=== PATIENT | male | born 1975 | race Caucasian/White ===

== ENCOUNTER 2021-06-03 14:44 | Outpatient (CLI) | payer BC, SELFPAY ==
[2021-06-03 15:24] LABS: Basophils Absolute Auto 0.1 K/mm3 (0.0-0.1); Basophils Percent Auto 0.9 % (0.2-1.2); Eosinophils Absolute Auto 0.6 K/mm3 (0-0.3); Eosinophils Percent Auto 5.4 % (0-4.4); Hematocrit 45.1 % (42.0-52.0); Hemoglobin 15.2 g/dL (14.0-18.0); Immature Granulocyte Absolute 0.09 K/mm3 (0.00-0.031); Immature Granulocyte Percent A 0.9 % (0-0.5); Lymphocytes Absolute Auto 2.82 K/mm3 (0.9-3.2); Lymphocytes Percent Auto 27.7 % (18.3-44.2); Mean Corpuscular HGB Conc 33.7 g/dl (32-36); Mean Corpuscular Hemoglobin 30.5 pg (26-34); Mean Corpuscular Volume 90.6 fl (80-100); Mean Platelet Volume 10.9 fl (7.4-10.4); Monocytes Absolute Auto 0.6 K/mm3 (0.1-0.6); Monocytes Percent Auto 6.2 % (2.6-8.5); Neutrophils Percent Auto 58.9 % (45.5-73.1); Platelet Count Result 259 k/mm3 (150-375); Red Blood Count 4.98 M/mm3 (4.6-6.20); Red Cell Distribution Width 13.1 % (11.5-14.5); White Blood Count 10.2 K/mm3 (4.5-10.0)
[2021-06-03 15:32] LABS: Add Urine Microscopic? YES; Appearance Urine Cloudy (Clear); Bilirubin Urine Negative (Negative); Blood Urine 1+ (Negative); Color Urine Yellow (Yellow); Glucose Urine UA 3+ mg/dL (Negative); Ketones Urine Negative (Negative); Leukocyte Esterase Ur Negative LEU/UL (NEGATIVE); Mucus Urine Rare /lpf; Nitrate Urine Negative (Negative); Protein Urine 2+ mg/dL (Negative); Specific Grav Ur 1.024 (1.001-1.035); Squamous Epithelial Cell Urine Rare /hpf (Few); WBC Urine 0-3 /hpf (0-3)
[2021-06-03 15:36] LABS: Alanine Aminotransferase 19 U/L (4-50); Albumin Level 4.2 g/dL (3.5-5.1); Alkaline Phosphatase 68 U/L (38-126); Anion Gap 6 mmol/L (8-16); Aspartate Amino Transferase 18 U/L (17-59); Bilirubin,Total 0.7 mg/dL (0.2-1.3); Blood Urea Nitrogen 15 mg/dL (9-20); Carbon Dioxide 26 mmol/L (22-30); Chloride 102 mmol/L (98-107); Cholesterol 193 mg/dL (0-200); Estimated Glomerular Filt Rate > 60; Glucose 210 mg/dL (65-110); HDL Direct 44 mg/dL; Potassium 4.3 mmol/L (3.4-5.0); Sodium 134 mmol/L (137-145); Triglycerides 100 mg/dL (<150)
[2021-06-03 15:39] LABS: Iron 90 ug/dL (49-181)
[2021-06-03 15:39] LABS: Hemoglobin A1C 8.9 % (<5.7)
[2021-06-03 15:51] LABS: Creatinine Urine 200.4 mg/dL
[2021-06-03 15:51] LABS: LDL Cholesterol Direct 117 mg/dL
[2021-06-03 16:30] LABS: MALB Creatinine Ratio 194.5 mg/g (0-30); Microalbumin Urine Random 389.7 mg/L (0-16.7)
[2021-06-03 16:41] LABS: Folic Acid 4.1 ng/mL (2.76->20)
[2021-06-08 15:15] LABS: Testosterone Free 69.6 pg/mL (35.0-155.0); Testosterone Total 461 ng/dL (250-1100)
== END 2021-06-03 14:45 | disposition home or self-care (01) ==
PROVIDERS: PCP Family Medicine; Visit Provider Family Medicine
DX: E11.65 Type 2 diabetes mellitus with hyperglycemia (principal); E78.2 Mixed hyperlipidemia; F32.A Depression, unspecified; E11.42 Type 2 diabetes mellitus with diabetic polyneuropathy; N52.9 Male erectile dysfunction, unspecified; Z12.5 Encounter for screening for malignant neoplasm of prostate
CPT/HCPCS: 36415; 80053; 80061; 81001; 82043; 82607; 82746; 83036; 83540; 84153; 84402; 84403; 84443; 85025; G0103

== ENCOUNTER 2021-07-09 07:58 | Outpatient (CLI) | payer BC, SELFPAY ==
[2021-07-09 08:30] LABS: Add Urine Microscopic? YES; Appearance Urine Clear (Clear); Bilirubin Urine Negative (Negative); Blood Urine 1+ (Negative); Color Urine Yellow (Yellow); Glucose Urine UA 3+ mg/dL (Negative); Ketones Urine Negative (Negative); Leukocyte Esterase Ur Negative LEU/UL (NEGATIVE); Mucus Urine Rare /lpf; Nitrate Urine Negative (Negative); Protein Urine Negative (Negative); Specific Grav Ur 1.027 (1.001-1.035); Urobilinogen Urine Negative mg/dL (<2.0); WBC Urine 0-3 /hpf (0-3)
== END 2021-07-09 07:59 | disposition home or self-care (01) ==
LOC: ANHLAB 08:00
PROVIDERS: PCP Family Medicine; Visit Provider Family Medicine
DX: R31.29 Other microscopic hematuria (principal)
CPT/HCPCS: 81001

== ENCOUNTER 2021-07-22 01:56 | Day surgery (SDC) | payer BC, SELFPAY ==
[2021-07-11 13:39] VITALS: BMI 33.3
[2021-07-22 10:10] VITALS: BP 145/76; PULSE 70; RESP 18; TEMP 36.7; O2SAT 96
--- NOTE | 2021-07-22 10:20 | WPDANESEPPF ---
Anes - Initial Pre Proc Eval Procedure: Operation Date: 07/22/21 11:00 Proposed Procedures p Esophagogastroduodenoscopy - Ravi Pierre MD Date/Time: 07/22/21 10:20 Surgeon: Ravi Pierre MD Pre Op Diagnosis: GERD Patient Data Age: 45 Gender: M Height: 1.91 m Weight: 120.7 kg Last Vital Signs Temp 36.7 C 07/22/21 10:10 Pulse 70 07/22/21 10:10 Resp 18 07/22/21 10:10 BP 145/76 H 07/22/21 10:10 Pulse Ox 96 07/22/21 10:10 Allergies Allergy/AdvReac Type Severity Reaction Status Date / Time monosodium glutamate Allergy Severe Swelling Verified 07/22/21 10:09 of Lip/Tongue/Throat aspirin Allergy Unknown Unknown Verified 07/22/21 10:09 ciprofloxacin AdvReac Mild Dizziness Verified 07/22/21 10:09 Home Medications Medication Instructions Recorded Confirmed Type escitalopram oxalate 10 mg tablet 10 mg PO DAILY #30 tablet 06/03/21 07/15/21 Rx omeprazole 40 mg capsule,delayed 40 mg PO DAILY #30 cap 06/03/21 07/15/21 Rx release lisinopril 20 mg tablet 20 mg PO DAILY #30 tablet 06/11/21 07/15/21 Rx diphenhydramine HCl [Benadryl 50 mg PO HS 07/11/21 07/15/21 History Allergy] metformin 500 mg PO BID 07/11/21 07/15/21 History FinestrellaTouch Ultra2 Meter #1 ea NS 07/15/21 07/15/21 Rx sildenafil (pulm.hypertension) 20 20 mg PO DAILY PRN #90 tablet 07/15/21 07/15/21 Rx mg tablet Patient hx anesthesia problems: none Family hx anesthesia problems: none Results Review: All pre-operative results and documents have been reviewed as part of the pre-operative evaluation. [facility] Past Medical History Medical History Asthma BMI 33.0-33.9,adult BPH without obstruction/lower urinary tract symptoms Chronic depression Confusion Diabetes Diabetic peripheral neuropathy associated with type 2 diabetes mellitus vitamin B12 956 with folic acid 4.1 on 06/03/2021 Elevated WBC count Encounter for prostate cancer screening PSA normal at 1.0 on 06/03/2021 Encounter for wellness examination in adult Essential hypertension GERD (gastroesophageal reflux disease) Hypersomnia Male erectile dysfunction, unspecified normal testosterone of 461 with free testosterone 69.6 on 06/03/2021 Microscopic hematuria (06/03/21) 1+ blood and 11-20 RBCs on 06/03/2021 Myalgia Pre-ulcerative calluses (~06/03/21) great toe bilaterally Proteinuria due to type 2 diabetes mellitus (06/03/21) 2+ protein and microalbumin ratio of 194.5 on 06/03/2021 Seasonal allergic rhinitis Tobacco use disorder, continuous 1 pack of cigarettes per week Tonsillar hypertrophy Type 2 diabetes mellitus with hyperglycemia glucose 210 with hemoglobin A1c 8.9 on 06/03/2021 Varicose veins of both legs with edema Family History Family History Other Family history of Alzheimer's disease Family history of malignant neoplasm of breast Family history of mental disorder Family history of multiple sclerosis Social History Social History Smoking packs per day: 0.5 Smoking cigarettes per day: 10.0 Years smoked: 15 Smoking pack-years: 7.50 Tobacco type: cigarettes Additional smoking assessment comments: CURRENTLY ONLY SMOKES WHEN HE HAS A BEER Alcohol intake: current Alcohol use details: rarely Substance use: current Substance use type: marijuana Other substance usage details: DAILY Living arrangements: with family Spiritual care concerns: No Anes - Eval Final PreProcedure Day of Procedure 07/22/21 10:20 Patient weight: obese Heart: regular rate and rhythm Lungs: clear to auscultation Airway: Mallampati scale class II Neurological: alert and oriented Last oral intake: >/= 8 hours ASA classification: III Emergent: no Anesthetic plan: proceed Anesthesia type and monitoring: general GIVS and standard monitoring Result
[2021-07-22] MEDS: LACTATED RINGERS 1,000 ML 150 ML IV CONT (10:24)
[2021-07-22 10:25] LABS: Glucose Point of Care 186 mg/dl (65-105)
--- NOTE | 2021-07-22 10:52 | PM.HPGS ---
History of Present Illness History of Present Illness Consent: Risks, benefits, and alternatives have been discussed and questions answered. Patient agrees to proceed with procedure. Chief complaint: GERD Narrative: Kang Altman is a 45 year old male here with n/v after waking up most of days for last 3-4 months, omeprazole helping some. Never had EGD, he also smokes marijuana. Review of Systems Constitutional: Constitutional: Denies headache(s) and Denies weakness Eyes: Eyes: Denies blurry vision ENT: Reports Normal hearing present, Denies headache(s) and Denies neck pain Cardiovascular: Cardiovascular: Denies chest pain and Denies dyspnea Respiratory: Respiratory: Denies dyspnea Gastrointestinal: Gastrointestinal: Reports no additional gastrointestinal complaints Genitourinary: Genitourinary: Denies dysuria Musculoskeletal: Musculoskeletal: Denies neck pain Integumentary/Breasts: Skin/Breast: Denies dry skin Neurologic: Reports Normal hearing present, Denies headache(s) and Denies weakness Psychiatric: Psychiatric: Denies anxiety Endocrine: Endocrine: Denies change in body appearance Hematologic/Lymphatic: Hematologic/Lymphatic: Denies easy bleeding Allergic/Immunologic: Allergic/Immunologic: Denies urticaria [facility] Past Medical History Medical History (Updated 07/22/21 @ 10:53 by Ravi Pierre MD) Asthma BMI 33.0-33.9,adult BPH without obstruction/lower urinary tract symptoms Chronic depression Confusion Diabetes Diabetic peripheral neuropathy associated with type 2 diabetes mellitus vitamin B12 956 with folic acid 4.1 on 06/03/2021 Elevated WBC count Encounter for prostate cancer screening PSA normal at 1.0 on 06/03/2021 Encounter for wellness examination in adult Essential hypertension GERD (gastroesophageal reflux disease) Hypersomnia Male erectile dysfunction, unspecified normal testosterone of 461 with free testosterone 69.6 on 06/03/2021 Marijuana smoker Microscopic hematuria (06/03/21) 1+ blood and 11-20 RBCs on 06/03/2021 Myalgia Nausea & vomiting Pre-ulcerative calluses (~06/03/21) great toe bilaterally Proteinuria due to type 2 diabetes mellitus (06/03/21) 2+ protein and microalbumin ratio of 194.5 on 06/03/2021 Seasonal allergic rhinitis Tobacco use disorder, continuous 1 pack of cigarettes per week Tonsillar hypertrophy Type 2 diabetes mellitus with hyperglycemia glucose 210 with hemoglobin A1c 8.9 on 06/03/2021 Varicose veins of both legs with edema Family History Family History Other Family history of Alzheimer's disease Family history of malignant neoplasm of breast Family history of mental disorder Family history of multiple sclerosis Social History Social History Smoking packs per day: 0.5 Smoking cigarettes per day: 10.0 Years smoked: 15 Smoking pack-years: 7.50 Tobacco type: cigarettes Additional smoking assessment comments: CURRENTLY ONLY SMOKES WHEN HE HAS A BEER Alcohol intake: current Alcohol use details: rarely Substance use: current Substance use type: marijuana Other substance usage details: DAILY Living arrangements: with family Spiritual care concerns: No Meds Home Medications and Allergies Home Medications Medication Instructions Recorded Confirmed Type escitalopram oxalate 10 mg tablet 10 mg PO DAILY #30 tablet 06/03/21 07/15/21 Rx omeprazole 40 mg capsule,delayed 40 mg PO DAILY #30 cap 06/03/21 07/15/21 Rx release lisinopril 20 mg tablet 20 mg PO DAILY #30 tablet 06/11/21 07/15/21 Rx diphenhydramine HCl [Benadryl 50 mg PO HS 07/11/21 07/15/21 History Allergy] metformin 500 mg PO BID 07/11/21 07/15/21 History Shotlst Ultra2 Meter #1 ea NS 07/15/21 07/15/21 Rx sildenafil (pulm.hypertension) 20 20 mg PO DAILY PRN #90 tablet 07/15/21 07/15/21 Rx mg tablet Allergies Jarvis
[2021-07-22] MEDS: BENZOCAINE (*SP) 60 ML SPRAY CAN (HURRICAINE) 1 SPRAY MUCOUS MEM (10:59)
[2021-07-22 11:15] VITALS: BP 155/84; PULSE 66; RESP 22; O2SAT 96
[2021-07-22 11:25] VITALS: BP 146/90; PULSE 65; RESP 19; O2SAT 98
[2021-07-22 11:35] VITALS: BP 161/91; PULSE 64; RESP 19; O2SAT 99
== END 2021-07-22 11:38 | disposition home or self-care (01) ==
PROVIDERS: PCP Family Medicine; Visit Provider Internal Medicine Gastroenterology
PROC: 0DJ08ZZ Inspection of Upper Intestinal Tract, Via Natural or Artificial Opening Endoscopic (ICD-10-PCS; CPT 43235; principal; 2021-07-22 11:00)
DX: R11.2 Nausea with vomiting, unspecified (principal); K21.00 Gastro-esophageal reflux disease with esophagitis, without bleeding; K29.50 Unspecified chronic gastritis without bleeding; I10 Essential (primary) hypertension; I83.93 Asymptomatic varicose veins of bilateral lower extremities; E11.42 Type 2 diabetes mellitus with diabetic polyneuropathy; J45.909 Unspecified asthma, uncomplicated; N40.0 Benign prostatic hyperplasia without lower urinary tract symptoms; F12.90 Cannabis use, unspecified, uncomplicated; F32.A Depression, unspecified
CPT/HCPCS: 43251; 43239; 82948; 88305; J2704; J7120

== ENCOUNTER 2021-08-19 08:48 | Outpatient (CLI) | payer BC, SELFPAY ==
--- NOTE | ~2021-08-19 | US_ITS ---
EXAMINATION: US abdomen complete EXAM DATE: 08/19/2021 09:13 INDICATION: R11.2 - Nausea with vomiting, unspecified N/V TECHNIQUE: Multiple grayscale and Doppler images of the complete abdomen were obtained (by a technolo gist who performed the scan) and subsequently reviewed. There is no prior study for comparison. FINDINGS: The abdominal aorta is normal in caliber. Visualized portion IVC is patent. The pancreatic head a nd body are normal in appearance. The pancreatic tail is not visualized. The liver has normal echogenicity and contour. There are no focal liver lesions identified. There is no evidence of intrahepatic biliary duct dilation. Portal venous flow was seen in the hepatopedal , normal direction and has normal Doppler waveform. Common bile duct measures 5-6 mm, which is normal. The gallbladder wall is normal in thickness, with expected amount of distention. No sonographic evidence of pericholecystic fluid. There is no cholel ithiases. Technologist performing exam reports patient did not demonstrate sonographic Taylor's sign. Please note that this sign is less reliable in patients who have received pain medication. Right kidney: There is normal contour and echogenicity. It measures 12.2 x 5.2 x 5.7 centimeters. There are no focal renal lesions identified. There is no hydronephrosis. Left kidney: There is normal contour and echogenicity. It measures 12.7 x 5.7 x 6.4 centimeters. T here are no focal renal lesions identified. There is no hydronephrosis. The spleen measures 10 centimeters and is morphologically normal. IMPRESSION: 1. Unremarkable complete abdominal ultrasound exam. Reviewed, dictated and finalized at location A. [employer]
== END 2021-08-19 08:49 | disposition home or self-care (01) ==
LOC: ANHIMG 08:49
PROVIDERS: PCP Family Medicine; Visit Provider Internal Medicine Gastroenterology
DX: R11.2 Nausea with vomiting, unspecified (principal)
CPT/HCPCS: 76700